=== PATIENT | female | born 1975 | race Caucasian/White ===

== ENCOUNTER 2023-11-27 11:26 | Emergency (ER) | payer OTHER, SELFPAY ==
[2023-11-27 11:32] VITALS: BP 129/89
--- NOTE | 2023-11-27 12:29 | ED.GENMED ---
History of Present Illness
General
Chief Complaint: Abdominal Pain
Source: patient
Exam Limitations: none
Time Seen by Provider: 11/27/23 12:24
Nursing documentation reviewed up to this point in time: agreed with
Travel History
Have you had any contact with someone who has COVID-19?: No
Do you have any symptoms of coronavirus? Fever > 100 degrees, chills, cough, shortness of breath, sore throat, loss of taste or smell, muscle aches, or headache?: No
History of Present Illness
History of Present Illness:
Patient is a 48 yr old female who presents to the ER complaining of abdominal pain cramps and watery bloody diarrhea. She reports she started a new probiotic yesterday called 'Pendulum ' she found on line and about 4 hours later started with
abdominal cramping and watery diarrhea. She had an episode of watery diarrhea yesterday and was up all night with abdominal pain and cramps. She did have 2 episodes of bloody stool today. She reports she went to move her bowels and it was simply
blood that came out, bright red blood. She denies any nausea. Denies any fever or chills. She does have a history of C. difficile years ago but has not been on recent antibiotics. She denies any urinary frequency urgency or dysuria.
Past History
Past History
ED Past Medical History: Other (Occasional migraines)
ED Past Surgical History: Cholecystectomy and
Social History
Tobacco: Non-smoker
Alcohol: Occasional
Drug: None
Personal: Partner
Living: with family
Employment: Employed
Family History
Family History: Other (Noncontributory)
Review of Systems
Review of Systems
Allergies reviewed?: Yes
All Other Systems: ROS reviewed and negative except as documented in HPI and ROS
Constitutional: Reports no symptoms; Denies fever, fatigue or chills
EENT: Reports no symptoms
Respiratory: Reports no symptoms
Cardiac: Reports no symptoms
ABD/GI: Reports abdominal pain and diarrhea; Denies nausea or vomiting
: Reports no symptoms
Musculoskeletal: Reports no symptoms
Skin: Reports no symptoms
Neurological: Reports no symptoms
Psychiatric: Reports no symptoms
Phy Exam
General Physical Exam
General Presentation: no apparent distress
General age: appears stated age
General Skin: warm and dry
General Mental: alert
General Hydration: appears well hydrated
Gastrointestinal Exam
Gastrointestinal Exam: soft and other (Nonspecific abdominal tenderness diffusely)
Neurological Exam
Neurological Exam: alert and oriented x3
Musculoskeletal Exam
Musculoskeletal Exam: full ROM
Skin Exam
Skin Exam: normal color and warm/dry
Psychiatric Exam
Psychiatric Exam: normal mood/affect
Course
Orders/Labs/Results
Orders:
Orders
11/27/23 12:42
Test Result ONCE
11/27/23 12:43
0.9% Sodium Chloride 1000 ml [Nss] 1,000 ml IV BOLUS
11/27/23 12:44
Complete Blood Count/With Diff Urgent
Comprehensive Metabolic Panel Urgent
HCG, Serum Qualitative Screen Urgent
Lipase Urgent
Dicyclomine HCl [Bentyl] 20 mg IM NOW STA
11/27/23 13:45
CT Abd/Pel (IV only)-DH only Urgent
Comment:
Reason For Exam: abd pain / bloody diarrhea
11/27/23 14:09
Urinalysis Reflex To Culture Urgent
Date Specimen was Collected: 11/27/23
Time Specimen was Collected: 14:07
Abnormal Lab Results
11/27/23 11/27/23
12:44 14:09
MCH 32.5 H pg
(27.0-31.0)
MPV 11.9 H fL
(7.4-10.4)
Urine Ketones 2+ A
(Negative)
11/27/23 12:44
11/27/23 12:44
Vital Signs
Initial and Last Documented VS:
Initial Vital Signs
Temp Pulse Resp BP Pulse Ox
98.2 F 70 18 129/89 100
11/27/23 11:32 11/27/23 11:32 11/27/23 11:32 11/27/23 11:32 11/27/23 11:32
Last Documented Vital Signs
Temp Pulse Resp BP Pulse Ox
98.2 F 63 18 112/64 100
11/27/23 11:32 11/27/23 15:48 11/27/23 11:32 11/27/23 15:48 11/27/23 11:32
MDM/Problems Addressed
Differential Diagnosis Includes:
Not limited to colitis, viral syndrome, diverticulitis, dehydration
MDM/Problems Addressed:
Patient is a 48-year-old female who started with abdominal cramping and diarrhea, bloody bowel movements after taking a new probiotic yesterday that she found online. Patient had not specific abdominal diffuse tenderness however no acute distress
denies any fevers is afebrile here. Normal electrolytes normal white count . CAT scan shows acute colitis involving splenic flexure and distal transverse colon. Case discussed with Dr. Tavera. I did review findings with patient will DC with
Augmentin, Bentyl and close outpatient follow-up. pt to f/u with her pcp and does have GI as well. d/c to return if any worsening of symptoms.
*Radiology
Radiology exam reviewed: radiology read reviewed
*Pulse Oximetry
Patient hypoxic: no
*Critical Care Note
Total Time (30-74mins, 75-104mins- exclusive of procedures): Not Applicable
ED Attending Note
-
Portions of this chart may have been created with voice recognition software.� Occasional wrong word or��sound alike� substitutions may have occurred due to the inherent limitations of voice recognition software.
Discharge Plan
Departure
Patient Disposition: Home (Routine Discharge)
Date of Disposition: 11/27/23
Time of Disposition: 15:46
Patient with high blood pressure during this ER visit?: Yes
Condition: Fair
Covid-19: Not Applicable
Discharge Problem:
Colitis
Instructions: Colitis (DC)
Prescriptions:
New
amoxicillin-pot clavulanate 875-125 mg tablet
1 tab PO BID Qty: 20 0RF
dicyclomine 20 mg tablet
20 mg PO QID PRN (Reason: abdominal cramping) Qty: 10 0RF
No Action
Theragen Tablet
1 tab PO DAILY
acetaminophen [Tylenol Extra Strength] 500 mg Tablet
1,000 mg PO Q6HPRN PRN (Reason: mild pain)
Referrals:
Shu Dunlap MD [Family Provider] -
Activity Restrictions/Additional Instructions:
As discussed bland diet for the next several days. A prescription for Augmentin was sent to pharmacy take as directed in addition a prescription for Bentyl, antispasmodic was sent to your pharmacy. Follow-up closely with your family doctor the
next several days and your GI specialist. Return if any worsening of symptoms of worsening abdominal pain/cramping fevers vomiting bloody diarrhea or any further concerns
Interventions
Interventions:
*Risk Screen - Suicide Last Done: 11/27/23 12:33
*General Assessment Last Done: 11/27/23 12:33
*Neglect/Abuse Screening Last Done: 11/27/23 12:33
ED- Fall Risk Assessment Last Done: 11/27/23 12:33
*ED COVID-19 Vaccine History Last Done: 11/27/23 12:33
XG-Dngkct-Fpaeauxpwf Assessment Last Done: 11/27/23 12:33
Discharge Date and Time
Print Language: NAURUAN
[2023-11-27] MEDS: BENTYL 20 MG IM (12:46)
[2023-11-27] MEDS: NSS 1000 IV (12:47)
[2023-11-27 13:05] LABS: % Basophils 0.6 % (0-2); % Eosinophils 2.6 % (0-6); % Immature Granulocytes 0.3 % (0-0.5); % Lymphocytes 22.7 % (20.5-51.1); % Monocytes 6.1 % (1.7-9.3); % Neutrophils 67.7 % (42.2-75.2); Absolute Eosinophils 0.2 10^3/uL (0-0.7); Absolute Lymphocytes 1.6 10^3/uL (1.2-3.4); Absolute Monocytes 0.4 10^3/uL (0.1-0.6); Absolute Neutrophils 4.6 10^3/uL (1.4-6.5); Hematocrit 38.5 % (37.0-47.0); Hemoglobin 13.7 g/dL (12.0-16.0); Mean Corp Hgb Conc. 35.6 g/dL (33.0-37.0); Mean Corpuscular Hgb 32.5 pg (27.0-31.0); Mean Corpuscular Volume 91.2 fL (81.0-99.0); Mean Platelet Volume 11.9 fL (7.4-10.4); Nucleated Red Blood Cells % 0 %; Platelet Count 169 10^3/uL (130-400); Red Blood Cell Count 4.22 10^6/uL (4.20-5.40); Red Cell Dist. Width 12.4 % (11.5-14.5); White Blood Cell Count 6.8 10^3/uL (4.8-10.8)
[2023-11-27 13:07] LABS: HCG, Serum Qualitative Screen Negative
[2023-11-27 13:08] LABS: ALT (SGPT) 27 U/L (0-35); AST (SGOT) 22 U/L (14-36); Albumin 3.9 g/dl (3.5-5.0); Alkaline Phosphatase 56 U/L (38-126); Blood Urea Nitrogen 10 mg/dl (7-17); Calcium 9.1 mg/dl (8.4-10.2); Carbon Dioxide 27 mmol/L (22-30); Chloride 105 mmol/L (98-107); Glucose 83 mg/dl (70-99); Lipase 75 U/L (23-300); Potassium 3.9 mmol/L (3.5-5.1); Sodium 138 mmol/L (135-145); Total Bilirubin 0.6 mg/dl (0.2-1.3); Total Protein 6.6 g/dl (6.3-8.2); eGFR > 60.00
[2023-11-27 14:25] LABS: Urine Albumin Negative (Neg - Trace); Urine Bilirubin Negative (Negative); Urine Character Clear (Clear); Urine Color Yellow; Urine Glucose Negative (Negative); Urine Ketone 2+ (Negative); Urine Leukocyte Negative (Negative); Urine Nitrite Negative (Negative); Urine Occult Blood Negative (Negative); Urine Urobilinogen Negative (Neg - 1+); Urine pH 6.5 (5.0-9.0)
[2023-11-27 15:48] VITALS: BP 112/64
[2023-11-27 16:22] VITALS: BP 112/64
== END 2023-11-27 16:23 | disposition home or self-care (01) ==
LOC: EMR 11:26
PROVIDERS: Nurse Practitioner; EMERGENCY PHYSICIAN Student in an Organized Health Care Education/Training Program; FAMILY PHYSICIAN Internal Medicine
DX: K52.9 Noninfective gastroenteritis and colitis, unspecified (principal)
CPT/HCPCS: 99284; 96360; 96372; 74177; 80053; 81003; 83690; 84703; 85025; Q9967